=== PATIENT | female | born 2000 | race Caucasian/White ===

== ENCOUNTER 2023-11-23 06:32 | Inpatient (IN) | payer OTHER ==
[~2023-11-23] VITALS: Ht 157.5 cm; Wt 61.4 kg
[2023-11-23] VITALS (60 sets, daily range): BP systolic 96–145; BP diastolic 49–87; PULSE 49–113; TEMP 97.5–98.3
--- NOTE | 2023-11-23 06:30 | NUR ---
PT OREINTED TO ROOM AND CHANGED INTO GOWN. PT DENIES ANY LOF, VB, OR PAINFUL CX. PT PLACED ON MONITORS, FHT CATAGORY 2 TRACING DUE TO VARIABLES, BUT OVERALL GOOD VARIABLITY. IV WAS STARTED QUICKLY AND FLUIDS SHORTLY AFTER. VARIABLES RESOLVED. MATERNAL VS WNL.
[~2023-11-23 06:32] MED LIST: LR & Oxytocin 500 ML IV SCH; LR 1,000 ML IV SCH; NORCO 325 MG-51 TAB PO; OMNICEF 300MG300 MG PO; ZOFRAN ODT8 MG PO
[2023-11-23] MEDS ORDERED: OSCAL 500 TAB500 MG PO (07:15)
[2023-11-23] MEDS ORDERED: PRENATAL TABLET PO (07:15)
[2023-11-23] MEDS ORDERED: QUALITY CHOICE1 TA7 (07:16)
[2023-11-23] MEDS ORDERED: MAGNESIUM200 MG PO (07:18)
--- NOTE | 2023-11-23 08:05 | NUR ---
DR PRICE ON UNIT AND AT BEDSIDE. SVE 1.5. AROM AT 0807, CLEAR FLUID NOTED.
[2023-11-23 08:29] LABS: BASO % 0.3 % (0.0-2.0); EOS # 0.1 K/mm3 (0.0-0.7); EOS % 0.7 % (0.0-4.0); GRAN # 7.4 K/mm3 (1.4-6.5); GRAN % 73.2 % (42.2-75.2); HEMATOCRIT 37.1 % (37.0-47.0); HEMOGLOBIN 13.1 g/dl (12.5-16.0); LYMPH # 2.1 K/mm3 (1.2-3.4); MEAN CELL VOLUME 92 fl (80.0-100.0); MEAN CORPUSCULAR HEMOGLOBIN 32 pg (27-31); MEAN CORPUSCULAR HGB CONC 35 g/dl (33.0-37.0); MEAN PLATELET VOLUME 11.4 fl (7.4-10.4); MONO # 0.4 K/mm3 (0.1-0.6); MONO % 4.1 % (1.7-9.3); PLATELET COUNT 179 K/mm3 (130-400); RED BLOOD COUNT 4.05 M/mm3 (4.10-5.30); REDCELL DISTRIBUTION WIDTH-CV 13.2 % (11.5-14.5)
[2023-11-23] MEDS ORDERED: ROPivacaine PF 0.2% 200 ML IV ONE (12:28)
--- NOTE | 2023-11-23 12:48 | NUR ---
1211- CALLED ANGELIQUE FOR PT REQUESTED EPIDURAL. 1233- ANGELIQUE AT BEDSIDE DISCUSSING EPIDURAL WITH PT. PT WAS SITTING WITH LEGS DANGLING. O2 AND BP MONITORS ON. 1248- TEST DOSE. 1255- PT REPOSTIONED TO WL. VS WNL.
[2023-11-23] MEDS ORDERED: diphenhydrAMINE 25 MG CAP PO PRN (13:15)
[2023-11-23] MEDS ORDERED: Ondansetron 4 MG/2 ML VIAL IV PRN (13:15)
[2023-11-23] MEDS ORDERED: Naloxone 0.4 MG/ML VIAL IV PRN ×2 (13:15→21:15)
[2023-11-23] MEDS ORDERED: diphenhydrAMINE 50 MG/ML 1 ML VIAL IV PRN (13:15)
[2023-11-23] MEDS ORDERED: ePHEDrine 50 MG/10 ML VIAL IV PRN (13:15)
--- NOTE | 2023-11-23 14:00 | NUR ---
1400- DR DEE MINA /. 1405- CASTILLO PLACED BY MARCELINA. 1410- PT ROLLED TO LL FOR LATE DECELS. 1418- PT GIVEN EPHEDRINE FOR LOWER BP/ DECELS. LATES RESOLVE. 1432- PT PLACED IN MAXIME POSITION. PROLONGED LATE. PT REMOVED FROM MAXIME AND PLACED INTO RIGHT LATERAL FLYING COWGIRL. LATES RESOLVE. DIFFICULTY TRACING CX ON THIS PT WHILE SIDE LYING.
--- NOTE | 2023-11-23 14:45 | NUR ---
1440- PT PLACED IN RL FLUING COWGIRL. 1445- PT HAD A LATE DECEL THAT LASTED 100 SECONDS. 1447- PT TURNED TO LL FLYING COWGIRL, DECELS IMPROVED.
--- NOTE | 2023-11-23 16:50 | NUR ---
1649- CALLED DR PRICE TO UPDATE. PT HAD MULTIPLE DECELS, PITOCIN WAS TURNED OFF AT 1630. DR PRICE ORDERED A DOSE OF EPHEDRINE. 1722- CALLED DR PRICE ABOUT DECELS RETURNING. DR PRICE SAID THAT SHE WAS WATCHING THE STRIP AND WAS GOING TO COME IN AND ASSESS PT.
[2023-11-23] MEDS ORDERED: Chloroprocaine PF 3% (30 MG/ML) 20 ML VIAL ONE (17:34)
[2023-11-23] MEDS ORDERED: Clindamycin 0 ML IV ONE (17:35)
--- NOTE | 2023-11-23 18:20 | NUR ---
4TH DOSE OF EPHEDRINE GIVEN FOR HEART TONES PER 'S ORDER. DOUBLE CHECKED WITH QUOC MERINO FOR DOSES AFTER 3RD DOSE. APPROVAL TO GIVE NEEDED FOR HEART TONES UNTIL DELIVERY.
--- NOTE | 2023-11-23 20:50 | NUR ---
ON UNIT. PER SVE, PT COMPLETE AT 2024. PT GIVES PRACTICE PUSH. GOOD MOVEMENT PER . 2024: CASTILLO REMOVED; BED BROKEN DOWN AND PT PREPARED FOR PUSHING. 2027: PT BEGINS PUSHING WITH . THIS RN AT BEDSIDE HOLDING US FOR HEART TONES. ASSISTANCE WITH PT LEGS, THIS RN AND PT'S BOYFRIEND. 2035: VACUUM PLACED ON HEAD PER . PRESSURIZED TO GREEN. TRACTION WITH CONTRACTION AND PT PUSHING X1, VACUUM POPPED OFF. 2036: VACUUM PLACED BACK ON HEAD PER , PRESSURIZED TO GREEN, TRACTION WITH CONTRACTION AND PT PUSHING X1, VACUUM POPPED OFF. 2038: VACUUM PLACED ON HEAD PER , PRESSURIZED TO GREEN, TRACTION WITH CONTRACTION AND PT PUSHING. VACUUM REMOVED. 2039: DELIVERY OF HEAD, DIFFICULTY DELIVERING INFANT BODY, SHOULDER DYSTOCIA CALLED PER . INTERVENTIONS IN THIS ORDER, REINALDO, HEAD OF BED DOWN, SUPRAPUBIC PRESSURE, DELIVERY OF RIGHT ANTERIOR SHOULDER PER . INFANT STIMULATED PER AND PLACED ON MATERNAL ABDOMEN. CORD CLAMPED X2 AND FOB CUT CORD, INFANT MOVED TO MATERNAL CHEST. CARE OF ASSUMED BY KADIE MAXWELL NURSERY RN. PITOCIN TURNED OFF PER HOSPITAL PROTCOL PER CHALO RN. CORD SEGMENT PASSED OFF TO KADIE ESTRADA AND CORD GASSES OBTAINED AND SENT TO RESPIRATORY THERAPY FOR RECURRENT LATES AND IUGR. CORD BLOOD OBTAINED PER AND HANDED OFF TO KADIE ESTRADA. KADIE ESTRADA SENT CORD BLOOD TO LAB. 2043: OF INTACT PLACENTA PER . PITOCIN STARTED AT 333ML/HR. ASSESSED PT'S LACERATIONS, X2 HYMENAL RING VAGINAL LACERATIONS AND A LEFT LABIAL LACERATION, REPAIRED PER . DELIVERY QBL NOTED BY THIS RN AND : 105ML 2047: PT PERICARE COMPLETED, BED PUT BACK TOGETHER. PLACED ICEPACK TO PT PERINEUM AND REPOSITIONED FOR OPTIMAL . FUNDAL MASSAGE PERFORMED, FUNDUS FIRM MINIMAL BLEEDING AT THIS TIME. 2049: POST RECOVERY BEGINS. PT DENIES NEEDS AT THIS TIME. NO CONCERNS REGARDING THE PATIENT PER THIS RN AT THIS TIME.
[2023-11-23] MEDS ORDERED: traZODone 50 MG TAB PO PRN (21:00)
[2023-11-23] MEDS ORDERED: oxyCODONE 5 MG TAB PO PRN (21:15)
[2023-11-23] MEDS ORDERED: Ibuprofen 800 MG TAB PO SCH (21:15)
[2023-11-23] MEDS ORDERED: Measles/Mumps/Rubella Virus Vaccine Live w Diluent 0.5 ML VIAL SQ SCH (21:15)
[2023-11-23] MEDS ORDERED: Mag/Al Hydrox/Simeth Susp 30 ML CUP PO PRN (21:15)
[2023-11-23] MEDS ORDERED: Loratadine 10 MG TAB PO PRN (21:15)
[2023-11-23] MEDS ORDERED: Acetaminophen 500 MG TAB PO PRN (21:15)
[2023-11-23] MEDS ORDERED: Magnes Hydrox (MOM) 80 MG/ML 30 ML CUP PO PRN (21:15)
[2023-11-23] MEDS ORDERED: Witch Hazel 50% Pads Bulk TUB TP PRN (21:15)
[2023-11-23] MEDS ORDERED: Phenylephrine/Mineral Oil/Petrolatum 57 GM TUBE RC PRN (21:15)
[2023-11-23] MEDS ORDERED: MOTRIN 800800 MG/TAB PO (21:25)
[2023-11-24 00:50] VITALS: BP 115/68; PULSE 72; TEMP 97.9
[2023-11-24 03:47] VITALS: BP 120/68; PULSE 67; TEMP 97.9
[2023-11-24] MEDS ORDERED: Sennosides/Docusate 8.6-50 MG TAB PO SCH (08:00)
--- NOTE | 2023-11-24 09:19 | NUR ---
Initial visit; Parents thanked Putty Maker for offering congratulations and God's blessings for the of their daughter. Putty Maker thanked family for choosing [facility].
[2023-11-24 09:45] VITALS: BP 118/73; PULSE 94; TEMP 97.7
[2023-11-24 13:00] VITALS: BP 117/83; PULSE 76
[2023-11-24 17:05] VITALS: BP 123/78; PULSE 73; TEMP 98.2
[2023-11-24 22:00] VITALS: BP 112/65; PULSE 80; TEMP 98.6
[2023-11-25 08:48] VITALS: BP 127/79; PULSE 72; TEMP 97.7
== END 2023-11-25 09:21 | disposition home or self-care (01) | DRG 560 ==
LOC: LDR 06:32 → OB 06:32 → LDR 09:06 → OB 11-24 04:58
PROVIDERS: ADMIT Obstetrics & Gynecology
PROC: 10D07Z6 Extraction of Products of Conception, Vacuum, Via Natural or Artificial Opening (ICD-10-PCS; principal; 2023-11-23)
PROC: 0HQ9XZZ Repair Perineum Skin, External Approach (ICD-10-PCS; 2023-11-23)
PROC: 10907ZC Drainage of Amniotic Fluid, Therapeutic from Products of Conception, Via Natural or Artificial Opening (ICD-10-PCS; 2023-11-23)
PROC: 3E033VJ Introduction of Other Hormone into Peripheral Vein, Percutaneous Approach (ICD-10-PCS; 2023-11-23)
DX: O36.5930 Maternal care for other known or suspected poor fetal growth, third trimester, not applicable or unspecified (principal); Z37.0 Single live birth; O98.32 Other infections with a predominantly sexual mode of transmission complicating childbirth; O76 Abnormality in fetal heart rate and rhythm complicating labor and delivery; O66.0 Obstructed labor due to shoulder dystocia; O70.0 First degree perineal laceration during delivery; A60.09 Herpesviral infection of other urogenital tract; Z3A.38 38 weeks gestation of pregnancy
CPT/HCPCS: J0737; J2401; J2405; J2590; J2795; J7120